=== PATIENT | female | born 1995 | race Caucasian/White ===

== ENCOUNTER 2018-01-18 04:35 | Emergency (ER) | payer BC ==
[2018-01-18] MEDS ORDERED: fentaNYL 100 MCG/2 ML INJ IVP ONE ×2 (04:52→05:28)
[2018-01-18] MEDS ORDERED: NS 1,000 ML IV ONE ×2 (04:52→06:13)
--- NOTE | 2018-01-18 04:54 | EDPHY ---
H & P Time Seen by Provider: 01/18/18 04:41 HPI/ROS: CHIEF COMPLAINT: Abdominal pain, worse in the lower left HISTORY OF PRESENT ILLNESS: This is a previously healthy 22-year-old female who is visiting from [place]. She arrived in the area approximately 5 days ago. They are here to do some hiking. She spent the day yesterday and [place], then drove up here to [place]. There is no onto word activity or straining yesterday. They did not go hiking as was raining. Her last meal was yesterday afternoon at 2:00 p.m.. She skipped dinner as she did not have an appetite. All-in-all she has had increased stool output in frequency this week but there has been no diarrhea. She went to bed at 11:00 p.m.. She felt well. She woke approximately 1 hr prior to admission with pain in the lower abdomen a little worse on the left. She has never had pain like this before. Over the course of the last hour the pain was somewhat cyclical but certainly steady. It did not radiate to the flank or the groin. She did notice when she went up to the bathroom that there was some blood, she is expecting to be under. At this point in time. Further, she did have a bowel movement but there is no relief in the pain. P: Worse with the bumps in the road and unable to stand up fully, says she walked in hunched over. Q: achy and dull R: Left lower quadrant and suprapubic S: Moderately Severe. with peaks at severe. T: Onset 1 hr ago Negative family history for kidney stones Prior surgery at age 4, gallbladder removed REVIEW OF SYSTEMS: Constitutional: No fever, no chills. Eyes: No discharge ENT: No sore throat. Cardiovascular: No chest pain, no palpitations. Respiratory: No cough, shortness of breath, or wheezing. Gastrointestinal: There was some nausea at the time of the peak of the pain but no vomiting or diarrhea. Genitourinary: No hematuria or frequency. Musculoskeletal: No back pain. Skin: No rashes. Neurological: No headache. 10 point ROS otherwise negative Source: Patient - Personal History LMP (Females 10-55): Now - Family History Significant Family History: No pertinent family hx - Physical Exam Exam: General Appearance: Alert, mild distress as when he laid her back the pain was worse, skin color is normal as well as no diaphoresis. Afebrile. Normal phonation. No respiratory distress. Eyes: Pupils equal and round no pallor or injection. No icterus ENT, Mouth: Mucous membranes slightly dry Pharynx without erythema or exudate. TM Clear. Neck: No adenopathy. Supple. No JVD. Trachea in midline. Respiratory: There are no retractions, lungs are clear to auscultation. Chest wall: Nontender to palpation. Cardiovascular: Regular rate and rhythm, no murmur. Abdomen: Soft tender across the lower abdomen greatest in the left lower quadrant than the suprapubic and to a mild degree on the right lower quadrant. No masses, bowel sounds normal. Neurological: Ox3. No motor weakness. Sensation intact. Gait nl. Skin: Warm and dry, no rashes. Musculoskeletal: No joint swelling. Extremities: No edema. Homans sign negative. No cords. Psychiatric: Normal affect. Patient is oriented X 3. There is no agitation Constitutional: Initial Vital Signs Temperature (C) 36.4 C 01/18/18 04:41 Heart Rate 54 L 01/18/18 04:41 Respiratory Rate 18 01/18/18 04:41 Blood Pressure 122/76 H 01/18/18 04:41 O2 Sat (%) 96 01/18/18 04:41 O2 Delivery Mode Room Air Allergies/Adverse Reactions: Sulfa (Sulfonamide Antibiotics) Allergy (Intermediate, Verified 01/18/18 04:49) Hives Home Medications: Medication Instructions Recorded Topiramate 01/18/18 Medical Decision Making - Diagnostics Imaging: Discussed imaging studies w/ order desk caller Radiologist ED Course/Re-evaluation: After initial evaluation I discussed pain management with her. 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 Thus will go ahead with some IV fentanyl. She was started on IV fluids. Initial testing will include a CBC, urine dip, urinalysis, as well as urine test. She reports that she is not sexually active thereby the test is low likelihood. Nonetheless, we will go ahead and order an ultrasound to rule out ovarian torsion as she is quite uncomfortable. She received a lid titration of low-dose narcotics for her pain initially 25 mcg of fentanyl then doses of morphine 2 mg which was repeated later in the course of her visit. She also received IV of normal saline for volume depletion and to fill her bladder for the ultrasound Ultrasound results interpreted by radiologist and reviewed with radiologist by phone. Evidently right ovary not seen. No appendicitis noted however this was a pelvic ultrasound, left ovary was noted to be normal without any cyst formation and no fluid in the cul-de-sac. Laboratory studies showed a normal white count and Negative urine dip Upon repeat examination after the ultrasound: Abdomen: Less tender, still some in the suprapubic as well as LLQ, no findings in the RLQ. No Rovsigns sign nor rebound. Stool felt in LLQ along the course of the sigmoid, minimally tender. We had a lengthy discussion regarding possibly etiologies. I did note on the abdominal exam as she was softer after the course of her visit here that there was a stool filled loop of bowel in the left lower quadrant. There does not P to be any ovarian pathology. Constipation certainly a possibility as she is traveling. [place] is also possibility although she started her period this am. Finally appendicitis needs to be discussed. I had a lengthy discussion with her regarding this. A CT scan has some distinct x-ray radiation risk and I recommend we proceed with that if she does not get better as the course the day, as I have told her to expect to have pain controlled with the Ibuprofen/Tylenol. I have outlined her a series of expectations and actions for the remainder of the day. Differential Diagnosis: Differential diagnosis includes, but is not limited to: Gastroenteritis, dehydration, renal colic, kidney stones, ureterolithiasis, appendicitis, mesenteric adenitis, food poisoning, constipation, bacterial dysentery. - Data Points Medications Given: Discontinued Medications Fentanyl (Sublimaze) 25 mcg IVP EDNOW ONE Stop: 01/18/18 04:53 Last Admin: 01/18/18 04:55 Dose: 25 mcg Fentanyl (Sublimaze) 25 mcg IVP EDNOW ONE Stop: 01/18/18 05:29 Last Admin: 01/18/18 05:32 Dose: 25 mcg Sodium Chloride (Ns) 1,000 mls @ 0 mls/hr IV EDNOW ONE; Wide Open PRN Reason: Protocol Stop: 01/18/18 04:53 Last Admin: 01/18/18 05:33 Dose: 1,000 mls Sodium Chloride (Ns) 1,000 mls @ 0 mls/hr IV EDNOW ONE; Wide Open PRN Reason: Protocol Stop: 01/18/18 06:14 Last Admin: 01/18/18 06:55 Dose: Not Given Magnesium Citrate (Magnesium Citrate) 300 ml PO ONCE ONE Stop: 01/18/18 07:14 Last Admin: 01/18/18 07:45 Dose: 300 ml Morphine Sulfate (Morphine) 4 mg SC EDNOW ONE Stop: 01/18/18 05:14 Last Admin: 01/18/18 05:46 Dose: Not Given Morphine Sulfate (Morphine) 4 mg IVP EDNOW ONE Stop: 01/18/18 05:29 Last Admin: 01/18/18 06:45 Dose: 4 mg Point of Care Test Results: CBC CBC Collection Date 01/18/18 CBC Collection Time 05:15 WBC 6.3 RBC 4.26 HGB 13.2 HCT 38.7 PLT 341 Neut # 3.7 Neut 58.6 LYMPH # 2.3 LYMPH 36.7 Other WBC # 0.3 Other WBC 4.7 MCV 90.8 Urine Collection Date 01/18/18 Collection Time 05:27 HCG Results Negative Urine Dip Collection Date 01/18/18 Collection Time 05:27 Specific [place] (1.002-1.030) 1.030 PH (5.0-7.5) 5.0 Leukocytes (Negative) Negative Nitrites (Negative) Negative Protein (Negative) Negative Glucose (Negative) Negative Ketones (Negative) Negative Urobilnogen (0.2-1.0 EU) 0.2 Bilirubin (Negative) Negative Blood (Negative) Negative Departure - Departure Disposition: Home, Routine, Self-Care Clinical Impression: Abdominal pain Qualifiers: Abdominal location: lower abdomen, unspecified Qualified Code(s): R10.30 - Lower abdominal pain, unspecified Condition: Good Instructions: Magnesium Citrate (By mouth), Acute Abdominal Pain (ED) Additional Instructions: This morning, take half a bottle of Mag citrate. Repeat in 4 hr if no bowel movement. Tylenol and Advil works well together the combination: Tylenol 650 mg and Advil 400 mg every 6 hours as needed for the pain. Diet management: Your to take fluids this morning. However beginning noon start taking a light diet, then take a more substantial meal at dinnertime. If you start getting worsening pain through the course of today, you should return. If you have residual pain tomorrow, then you need to return for re-examination, here as well. Referrals: OUT,OF STATE [Other] - As per Instructions
[2018-01-18] MEDS ORDERED: MAGNESIUM CITRATE 300 ML BOTTLE PO ONE (07:13)
[2018-01-18 08:15] VITALS: BP 102/63
== END 2018-01-18 08:02 | disposition home or self-care (01) ==
LOC: CED 04:35
DX: R10.32 Left lower quadrant pain (principal); E86.9 Volume depletion, unspecified
CPT/HCPCS: 76856-PO; 96374; J2270; J3010